=== PATIENT | male | born 1975 | race African-American/Black ===

== ENCOUNTER 2017-08-27 21:53 | Inpatient (IN) | payer OTHER ==
[~2017-08-27] VITALS: Ht 175.3 cm; Wt 62.3 kg
[~2017-08-27 21:53] MED LIST: MOTRIN600 MG PO; VALIUM5 MG PO
[2017-08-27 22:22] LABS: BASOPHIL (%) 0.3 % (0-1); EOSINOPHIL (%) 0.8 % (0-5); EOSINOPHIL COUNT 0.1 K/uL (0-0.3); HEMATOCRIT 39.3 % (38.0-50.0); HEMOGLOBIN 13.8 G/DL (12.5-16.6); IMMATURE GRANULOCYTE (%) 0.2 % (0.0-0.7); LYMPHOCYTE (%) 55.8 % (15-42); LYMPHOCYTE COUNT 7.2 K/uL (1.0-2.8); MCH 31.7 PG (29.0-34.0); MCHC 35.1 G/DL (30.0-36.0); MCV 90.3 FL (86-99); MONOCYTE (%) 7.2 % (3-12); MONOCYTE COUNT 0.9 K/uL (0-0.8); NEUTROPHIL (%) 35.7 % (45-76); NEUTROPHIL COUNT 4.6 K/uL (1.8-6.4); RBC DIS.WIDTH-CV 12.6 % (11.8-14.6); RBC DIS.WIDTH-SD 42.4 % (39-53); RED BLOOD COUNT 4.35 M/uL (4.00-5.50); WHITE BLOOD COUNT 12.9 K/uL (4.1-10.2)
[2017-08-27 22:30] LABS: AMYLASE 101 IU/L (1-118); CHLORIDE 104 mEq/L (99-109); POTASSIUM 3.6 mEq/L (3.7-5.4)
[2017-08-27 22:31] LABS: SODIUM 141 mEq/L (136-147)
[2017-08-27 22:32] LABS: GLUCOSE 131 mg/dL (70-99)
[2017-08-27 22:35] LABS: SERUM ETHYL ALCOHOL < 10 mg/dL
[2017-08-27 22:36] LABS: CREATININE 1.3 mg/dL (0.6-1.3); GFR ESTIMATE (CALCULATED) > 59 mL/min/ (58.99-99999)
[2017-08-27 22:37] LABS: UREA NITROGEN (BUN) 17 mg/dL (9-23)
[2017-08-27 22:39] LABS: LIPASE 18 U/L (1.0-51.0)
[2017-08-27 23:03] LABS: PLATELET COUNT 251 K/uL (156-360)
[2017-08-28] VITALS (7 sets, daily range): BP systolic 103–130; BP diastolic 64–88
[2017-08-28 05:47] LABS: HEMATOCRIT 35.6 % (38.0-50.0); HEMOGLOBIN 12.3 G/DL (12.5-16.6); MCH 31.3 PG (29.0-34.0); MCHC 34.6 G/DL (30.0-36.0); MCV 90.6 FL (86-99); PLATELET COUNT 245 K/uL (156-360); RBC DIS.WIDTH-CV 12.7 % (11.8-14.6); RBC DIS.WIDTH-SD 42.5 % (39-53); RED BLOOD COUNT 3.93 M/uL (4.00-5.50); WHITE BLOOD COUNT 14.3 K/uL (4.1-10.2)
[2017-08-28 07:01] LABS: ALBUMIN 3.7 G/DL (3.2-4.8); ALKALINE PHOSPHATASE 53 IU/L (3-129); ALT (GPT) 14 IU/L (3-49); AST (GOT) 32 IU/L (2-34); CHLORIDE 104 MEQ/L (99-109); CREATININE 1.2 MG/DL (0.6-1.3); GFR ESTIMATE (CALCULATED) > 59 mL/min/ (58.99-99999); GLUCOSE 168 mg/dL (70-99); POTASSIUM 3.6 MEQ/L (3.7-5.4); SODIUM 136 MEQ/L (136-147); TOTAL BILIRUBIN 0.5 MG/DL (0.0-1.0); TOTAL PROTEIN 6.1 G/DL (6.4-8.3); UREA NITROGEN (BUN) 14 mg/dL (9-23)
[2017-08-29 04:41] VITALS: BP 118/72
[2017-08-29 05:50] LABS: HEMATOCRIT 37.4 % (38.0-50.0); HEMOGLOBIN 12.8 G/DL (12.5-16.6); MCH 30.8 PG (29.0-34.0); MCHC 34.2 G/DL (30.0-36.0); MCV 89.9 FL (86-99); PLATELET COUNT 256 K/uL (156-360); RBC DIS.WIDTH-CV 12.6 % (11.8-14.6); RBC DIS.WIDTH-SD 41.7 % (39-53); RED BLOOD COUNT 4.16 M/uL (4.00-5.50); WHITE BLOOD COUNT 11.8 K/uL (4.1-10.2)
[2017-08-29 06:19] LABS: CHLORIDE 103 MEQ/L (99-109); GFR ESTIMATE (CALCULATED) > 59 mL/min/ (58.99-99999); GLUCOSE 128 mg/dL (70-99); POTASSIUM 3.7 MEQ/L (3.7-5.4); SODIUM 140 MEQ/L (136-147); UREA NITROGEN (BUN) 7 mg/dL (9-23)
[2017-08-29 08:11] VITALS: BP 120/74
[2017-08-29 11:42] VITALS: BP 119/67
[2017-08-29 15:35] VITALS: BP 128/74
[2017-08-29 19:29] VITALS: BP 128/64
[2017-08-29 23:23] VITALS: BP 111/61
[2017-08-30 04:32] VITALS: BP 126/62
[2017-08-30 05:59] LABS: HEMATOCRIT 37.7 % (38.0-50.0); MCH 31.2 PG (29.0-34.0); MCHC 34.5 G/DL (30.0-36.0); MCV 90.4 FL (86-99); PLATELET COUNT 248 K/uL (156-360); RBC DIS.WIDTH-CV 12.5 % (11.8-14.6); RBC DIS.WIDTH-SD 41.5 % (39-53); RED BLOOD COUNT 4.17 M/uL (4.00-5.50); WHITE BLOOD COUNT 10.2 K/uL (4.1-10.2)
[2017-08-30 07:37] VITALS: BP 121/70
[2017-08-30 11:35] VITALS: BP 122/70
[2017-08-30] MEDS ORDERED: OXYCODONE HCL5 MG PO (14:20)
[2017-08-30] MEDS ORDERED: COLACE100 MG PO (14:21)
[2017-08-30] MEDS ORDERED: ONDANSETRON HCL8 MG PO (14:21)
== END 2017-08-30 15:05 | disposition home or self-care (01) | DRG 987 ==
LOC: TRA 21:53 → EDOF 23:12 → ENRESERV 23:12 → ENRESERVTM 23:12 → ENRESERVDT 23:12 → 3EAST 23:12 → ENRESERV 08-28 00:34 → 3EAST 08-28 01:21
PROVIDERS: Emergency Medicine; Physician Assistant; Surgery
DX: S27.0XXA Traumatic pneumothorax, initial encounter (principal); S21.412A Laceration without foreign body of left back wall of thorax with penetration into thoracic cavity, initial encounter; E87.6 Hypokalemia; T79.7XXA Traumatic subcutaneous emphysema, initial encounter; X99.1XXA Assault by knife, initial encounter; S60.222A Contusion of left hand, initial encounter; Y92.039 Unspecified place in apartment as the place of occurrence of the external cause; G40.909 Epilepsy, unspecified, not intractable, without status epilepticus; Z91.19 Patient's noncompliance with other medical treatment and regimen
CPT/HCPCS: 71045; 71046; 73130; 80048; 80053; 81003; 82150; 83690; 85025; 85027; 86850; 86900; 86901; 99281; 99285; G0480; J0690